=== PATIENT | male | born 1965 | race Caucasian/White ===

== ENCOUNTER 2017-07-27 08:08 | Emergency (ER) | payer BC ==
[~2017-07-27] VITALS: Ht 175.3 cm; Wt 101.4 kg
[~2017-07-27 08:08] MED LIST: BACTRIM,SEPT1 TABLET PO; KEFLEX500 MG PO; PERCOCET 5/31 TABLET PO
[2017-07-27] MEDS ORDERED: IBUPROFEN800 MG PO (11:01)
[2017-07-27] MEDS ORDERED: PEN-VEE K,VEET500 MG PO (11:02)
[2017-07-27 11:18] LABS: HEMATOCRIT 47.1 % (38.0-50.0); MCH 33.5 PG (29.0-34.0); MCHC 34.4 G/DL (30.0-36.0); MCV 97.3 FL (86-99); MEAN PLAT.VOLUME 9.7 uM^3 (9.0-12.4); PLATELET COUNT 282 K/uL (156-360); RBC DIS.WIDTH-CV 12.4 % (11.8-14.6); RBC DIS.WIDTH-SD 44.7 % (39-53); RED BLOOD COUNT 4.84 M/uL (4.00-5.50); WHITE BLOOD COUNT 7.8 K/uL (4.1-10.2)
[2017-07-27 12:01] LABS: ALKALINE PHOSPHATASE 76 IU/L (3-129); ANION GAP 6 MEQ/L (2-14); CHLORIDE 105 MEQ/L (99-109); GFR ESTIMATE (CALCULATED) > 59 mL/min/; GLUCOSE 91 mg/dL (70-99); POTASSIUM 3.9 MEQ/L (3.7-5.4); SAMPLE HEMOLYSIS CHECK 0; SAMPLE ICTERIC CHECK 0; SAMPLE LIPEMIA CHECK 0; SODIUM 139 MEQ/L (136-147); TOTAL BILIRUBIN 0.8 MG/DL (0.0-1.0); UREA NITROGEN (BUN) 22 mg/dL (9-23)
[2017-07-27 12:42] LABS: ADD MIUA? YES; BILIRUBIN NEGATIVE; BLOOD SMALL; COLOR YELLOW ((YELLOW)); GLUCOSE (STRIP) NEGATIVE; KETONES 20; LEUKOCYTES NEGATIVE; NITRITE NEGATIVE; PROTEIN (STRIP) 30; SPECIFIC GRAVITY 1.027 (1.000-1.030); UROBILINOGEN 0.2 MG/DL (0.2-1.0)
[2017-07-27 12:47] LABS: BACTERIA RARE /HPF; CALCIUM OXALATE CRYSTALS 1+ /HPF; EPITHELIAL CELLS RARE /HPF; GRANULAR CASTS 0-5 /LPF; MUCUS 2+ /LPF; RED BLOOD CELLS 0-5 /HPF (0-5); UCUL ADDED? NO; WHITE BLOOD CELLS 0-5 /HPF (0-5)
[2017-07-27] MEDS ORDERED: ZOFRAN ODT4 MG PO (13:09)
[2017-07-27 13:15] VITALS: BP 148/69
== END 2017-07-27 13:18 | disposition home or self-care (01) ==
LOC: EME 08:08
PROVIDERS: Nurse Practitioner Family
DX: R10.33 Periumbilical pain (principal); R31.9 Hematuria, unspecified; Z98.890 Other specified postprocedural states; K21.9 Gastro-esophageal reflux disease without esophagitis; F17.200 Nicotine dependence, unspecified, uncomplicated
CPT/HCPCS: 74177; 80053; 81003; 85027; 99281; 99284; J1885; J2405